=== PATIENT | male | born 1965 | race Caucasian/White ===

== ENCOUNTER 2020-10-22 10:22 | Observation (INO) | payer OTHER, SELFPAY ==
--- NOTE | ~2020-10-22 | CT_ITS ---
EXAMINATION: CT abdomen pelvis w con DATE: 10/22/2020 12:36 INDICATION: Generalized abdominal pain. TECHNIQUE: Computed tomography (CT) of the abdomen and pelvis was performed with 100 mL Omnipaque-350 intravenous contrast. Automated exposure control and iterative reconstruction technique were employe d. The dose-length product was 290.96 mGy-cm. COMPARISON: 07/29/2015 FINDINGS: Lung bases are clear. Heart size is normal. No pericardial or pleural effusion. Small sliding-type hi atal hernia. Liver, gallbladder, pancreas, left kidney and right adrenal gland are normal. Nonspecifi c 2.5 cm left adrenal mass which given the minimal increase in size from 2.0 cm over the course of gr eater than 5 years would be most consistent with an adenoma. There are a couple small low-attenuation right renal cysts the larger measuring 10 mm. Small splenic calcification consistent with old granul omatous disease. Normal appendix. No bowel obstruction. Moderate sigmoid diverticulosis without surro unding from trace stranding to suggest diverticulitis. Bladder is normal. The uterus is not identifie d and has likely been surgically resected. No free intraperitoneal gas or fluid. No pathologically en larged abdominal or pelvic lymphadenopathy. There is calcified atherosclerosis of the aorta and many of the other arteries. Small dystrophic calcifications along the fascial planes of the penis consiste nt with Peyronie's disease. Mild scattered degenerative skeletal changes in the spine and bilateral h ips and sacroiliac joints. IMPRESSION: 1. No acute intra-abdominal/pelvic pain. 2. Sigmoid diverticulosis. Reviewed, dictated and finalized at location A.
[2020-10-22 10:35] VITALS: BP 161/106; PULSE 83; RESP 24; TEMP 36.4; O2SAT 100
[2020-10-22] MEDS: SODIUM CHLORIDE 0.9% IV 1,000 ML 999 ML IV CONT (10:45)
[2020-10-22] MEDS: KETOROLAC 30 MG/ML VIAL (*BKC) IV PUSH (10:45)
[2020-10-22] MEDS: ONDANSETRON INJ 4 MG/2 ML VIAL IV PUSH ×2 (10:45→16:47)
--- NOTE | 2020-10-22 10:45 | ED.ABDPAIN ---
HPI - Abdominal Pain General Chief Complaint: Abdominal Pain Stated Complaint: pain in stomach has not pooped in days Time Seen by Provider: 10/22/20 10:46 Source: patient and RN notes reviewed Mode of arrival: ambulatory Limitations: no limitations History of Present Illness MD elicited complaint: abdominal pain Pertinent past history: constipation and diverticulitis Onset (ago): hour(s) (2) Pain Consistency: colicky Location: LLQ Severity: moderate Quality: cramping Radiation: none Migration to: no migration Exacerbating factors: nothing Relieving factors: nothing Associated symptoms: nausea, vomiting, chills and constipation (no BM in 2 days) Related Data Home Medications Medication Instructions Recorded Confirmed amlodipine 5 mg PO DAILY 10/22/20 10/22/20 ibuprofen 800 mg PO TID 10/22/20 10/22/20 lisinopril 30 mg PO DAILY 10/22/20 10/22/20 pantoprazole 40 mg PO DAILY 10/22/20 10/22/20 sertraline 100 mg PO DAILY 10/22/20 10/22/20 tramadol 50 mg PO Q6H PRN 10/22/20 10/22/20 trazodone 100 mg PO HS PRN 10/22/20 10/22/20 Allergies Allergy/AdvReac Type Severity Reaction Status Date / Time No Known Allergies Allergy Unverified 09/21/19 10:36 Review of Systems Review of Systems: All systems reviewed & are unremarkable except as noted in HPI and below Constitutional: Constitutional: Denies fever(s) Cardiovascular: Cardiovascular: Reports no additional cardiovascular complaints Respiratory: Respiratory: Reports no additional respiratory complaints Gastrointestinal: Gastrointestinal: Reports as per HPI and Denies heartburn Genitourinary: Genitourinary: Reports no additional male genitourinary complaints Musculoskeletal: Musculoskeletal: Reports no additional musculoskeletal complaints [facility], [facility] Past Medical History Medical History (Updated 10/22/20 @ 16:03 by Manoj Tran MD) Diverticulitis GERD (gastroesophageal reflux disease) Hypertension Surgical History Surgical History (Updated 10/22/20 @ 11:19 by Manoj Tran MD) H/O neck surgery Social History Social History (Updated 10/22/20 @ 11:19 by Manoj Tran MD) Smoking packs per day: 0.5 Smoking cigarettes per day: 10.0 Smoking status: Current every day smoker Alcohol intake: former Alcohol use details: quit 3 years ago Substance use: current Substance use type: marijuana Other substance usage details: occasional Exam Const: General: no acute distress and ill appearing acutely ( appears in pain) Nutritional Appearance: thin Orientation/consciousness: patient oriented x3 HENMT: Head: normal to inspection Ears: external ears normal Face and sinus: normal facial exam Mouth: Yes lip normal and Yes moist mucous membranes Eyes: Conjunctivae: conjunctivae normal Pupils: Equal, round and reactive pupils present EOM: EOMs intact bilaterally Neck: Neck: normal visual inspection Resp: Effort & Inspection: normal respiratory effort Auscultation: clear to auscultation bilaterally Cardio: Rate: regular rate Rhythm: regular rhythm GI: GI Palp: Yes Soft to palpation, Yes Tenderness to palpation present (GI) (LLQ moderate to severe), Yes Guarding due to palpation present (GI) and No Rebound tenderness present Back/Spine/Pelvis: Back: no CVA tenderness Thoracic/Lumbar Spine: thoraco-lumbar ROM normal Skin: General skin exam: normal color Rashes: no rashes Neuro: General: patient oriented x3, moves all extremities, no meningeal signs and no focal motor deficits Speech: normal speech Gait exam (Neuro): Normal gait present Extrem: General: normal to inspection and no clubbing, cyanosis or edema Psych: Appearance: grossly normal and well kempt Mental Status: mental status grossly normal Affect: normal affect Attitude: cooperative Thought content: Yes Normal thought content present Course Course Emergency Course: patient continues to have pain cramping in his left abdomen. CT does not show evidence of divertic
[2020-10-22] MEDS: HYDROmorphone HCL INJ (*CRX) 2 MG/ML VIAL 0.5 MG IV PUSH ×3 (11:14→20:31)
[2020-10-22 11:42] LABS: Basophils Absolute Auto 0.04 K/mm3 (0.00-0.10); Basophils Percent Auto 0.3 % (0.0-1.0); Eosinophils Absolute Auto 0.02 K/mm3 (0.02-0.50); Eosinophils Percent Auto 0.2 % (1.0-6.0); Hematocrit 34.7 % (40.0-54.0); Hemoglobin 11.2 g/dL (14.0-18.0); Immature Granulocyte Absolute 0.06 K/mm3 (0.00-0.00); Immature Granulocyte Percent A 0.5 % (0.0-0.0); Lymphocytes Percent Auto 7.1 % (18.0-42.0); Mean Corpuscular HGB Conc 32.3 g/dL (32.0-36.0); Mean Corpuscular Hemoglobin 26.9 pg (27.0-31.0); Mean Corpuscular Volume 83.4 fL (78.0-102.0); Mean Platelet Volume 10.4 fl (8.7-11.0); Monocytes Absolute Auto 0.64 K/mm3 (0.10-0.90); Neutrophils Absolute Auto 11.1 K/mm3 (1.7-7.2); Neutrophils Percent Auto 86.9 % (50.0-70.0); Platelet Count Result 318 K/mm3 (150-420); Red Blood Count 4.16 M/mm3 (4.70-6.10); Red Cell Distribution Width 14.6 % (11.6-14.4); White Blood Count 12.7 K/mm3 (4.8-10.8)
[2020-10-22 11:55] LABS: Albumin Level 3.8 g/dL (3.4-5.0); Alkaline Phosphatase 72 U/L (46-116); Anion Gap 11 mmol/L (8-16); Aspartate Amino Transferase 15 U/L (15-37); Bilirubin,Total 0.3 mg/dL (0.00-1.00); Blood Urea Nitrogen 21 mg/dL (7-18); Calcium 8.8 mg/dL (8.5-10.1); Carbon Dioxide 25 mmol/L (21-32); Chloride 102 mmol/L (98-108); Estimated Glomerular Filt Rate 60; Glucose 129 mg/dL (70-99); Lipase 293 U/L (73-393); Osmolality Calculated 291 mOsm/kg (285-295); Potassium 3.4 mmol/L (3.5-5.1); Sodium 138 mmol/L (136-145); Total Protein 7.5 g/dL (6.4-8.2)
[2020-10-22 12:20] LABS: Alanine Aminotransferase 20 U/L (16-63)
[2020-10-22 12:25] LABS: Lactic Acid Reflex 1.8 mmol/L (0.4-2.0)
[2020-10-22] MEDS: HYDROmorphone HCL INJ (*CRX) 2 MG/ML VIAL 1 MG IV PUSH ×2 (12:38→13:44)
[2020-10-22 12:47] LABS: Add Urine Microscopic? NO; Appearance Urine Clear (Clear); Bilirubin Urine Negative (Negative); Blood Urine Negative (Negative); Color Urine Yellow (Yellow); Glucose Urine UA Negative (Negative); Ketones Urine Negative (Negative); Leukocyte Esterase Ur Negative LEU/UL (Negative); Nitrate Urine Negative (Negative); Protein Urine Negative (Negative); Urobilinogen Urine 0.2 mg/dL (0.2-1.0)
[2020-10-22 12:58] LABS: Amphetamine Screen Urine Negative (Negative); Barbiturate Screen Urine Negative (Negative); Benzodiazepines Screen Urine Negative (Negative); Cannabinoid Screen Urine Positive (Negative); Cocaine Screen Urine Negative (Negative); Methadone Screen Urine Negative (Negative); Opiate Screen Urine Negative (Negative); Phencyclidine Screen Urine Negative (Negative)
[2020-10-22] MEDS: POTASSIUM CHLORIDE 20 MEQ TABLET PO (13:20)
[2020-10-22 13:49] LABS: Amylase 112 U/L (25-115)
[2020-10-22 16:00] VITALS: BP 148/90; PULSE 110; RESP 20; TEMP 37.3; O2SAT 99
[2020-10-22 16:03] VITALS: BP 169/79; PULSE 118; RESP 20; O2SAT 98
[2020-10-22 16:20] VITALS: BMI 23.6
[2020-10-22] MEDS: DEXTROSE 5%/0.45% SOD CHL 1,000 ML 150 ML IV CONT ×2 (16:48→23:47)
--- NOTE | 2020-10-22 17:15 | PC.NURSE ---
Patient instructed not to flush toilet. Nurse needs to see BM
[2020-10-22] MEDS: traZODone HCL 50 MG TABLET PO (20:20)
[2020-10-22 21:08] VITALS: BP 160/95; PULSE 87; RESP 20; TEMP 36.8; O2SAT 97
[2020-10-22 22:00] VITALS: PULSE 87; RESP 20; TEMP 36.8; O2SAT 97
[2020-10-23] VITALS: BP 160/95; PULSE 87; RESP 20; TEMP 36.8; O2SAT 97
[2020-10-23] MEDS: HYDROmorphone HCL INJ (*CRX) 2 MG/ML VIAL 0.5 MG IV PUSH (02:44)
[2020-10-23 06:07] VITALS: BP 183/97; PULSE 84; RESP 18; TEMP 36.2; O2SAT 98
[2020-10-23 07:40] VITALS: BP 167/92; PULSE 85; RESP 18; TEMP 37.3; O2SAT 98
--- NOTE | 2020-10-23 08:19 | PM.SD2 ---
Same Day Admit/Disch: HPI History of Present Illness Chief complaint: DIVERTICULITIS <DUNIA Kwon - Last Filed: 10/23/20 08:58> Narrative: Bean Lizama is a 55 year old male who comes into the hospital with LLQ pain and states he has not had a BM in a few days. Pt states the sensation he gets is that he needs to pass gas when he is standing and when sitting there is tenderness. Pt UDS positive for THC and Pt admits to using same. Pt states that he has been having episodes of N/V. Pt states that he had been taking his BP medications but stopped when he saw his BP at one time was 90s systolic. This AM Pt states his pain is improved and would like to go home. <DUNIA Kwon - Last Filed: 10/23/20 08:58> [facility] Past Medical History Medical History: Medical History Diverticulitis GERD (gastroesophageal reflux disease) Hypertension <DUNIA Kwon - Last Filed: 10/23/20 08:58> Surgical History Surgical History: Surgical History H/O neck surgery <DUNIA Kwon - Last Filed: 10/23/20 08:58> Family History Family History: Family History Mother Colon cancer <DUNIA Kwon - Last Filed: 10/23/20 08:58> Social History Social History: Social History Smoking packs per day: 0.5 Smoking cigarettes per day: 10.0 Smoking status: Current every day smoker Tobacco type: cigarettes and e-cigarettes/vaping Second hand tobacco smoke exposure: Yes Alcohol intake: former Drinks per week: 7 Alcohol use details: quit 3 years ago Substance use: current Substance use type: marijuana Other substance usage details: occasional Gender identity (if verbalized by the patient): Male Spiritual care concerns: No <DUNIA Kwon Last Filed: 10/23/20 08:58> Same Day Admit/Disch: Med Pre-admit Medications Home Medications: Home Medications Medication Instructions Recorded Confirmed Type amlodipine 5 mg PO DAILY 10/22/20 10/22/20 History ibuprofen 800 mg PO TID 10/22/20 10/22/20 History lisinopril 30 mg PO DAILY 10/22/20 10/22/20 History pantoprazole 40 mg PO DAILY 10/22/20 10/22/20 History sertraline 100 mg PO DAILY 10/22/20 10/22/20 History tramadol 50 mg PO Q6H PRN 10/22/20 10/22/20 History trazodone 100 mg PO HS PRN 10/22/20 10/22/20 History levofloxacin 500 mg PO DAILY 7 Days #7 tablet 10/23/20 Rx metronidazole [Flagyl] 500 mg PO Q8H #21 tablet 10/23/20 Rx <DUNIA Kwon - Last Filed: 10/23/20 08:58> Exam Const: General: cooperative, comfortable and no acute distress <DUNIA Kwon - Last Filed: 10/23/20 08:58> Nutritional Appearance: average body habitus <DUNIA Kwon Last Filed: 10/23/20 08:58> HENMT: Head: normal to inspection, normocephalic and atraumatic <DUNIA Kwon - Last Filed: 10/23/20 08:58> Ears: hearing grossly normal bilaterally <DUNIA Kwon Last Filed: 10/23/20 08:58> Eyes: General: appearance normal, both eyes and all related structures <DUNIA Kwon - Last Filed: 10/23/20 08:58> Alignment and Position: alignment normal <DUNIA Kwon Last Filed: 10/23/20 08:58> Eyelids: eyelids normal <DUNIA Kwon - Last Filed: 10/23/20 08:58> Neck: Neck: normal visual inspection and no JVD <DUNIA Kwon - Last Filed: 10/23/20 08:58> Resp: Effort & Inspection: normal respiratory effort <DUNIA Kwon - Last Filed: 10/23/20 08:58> Auscultation: clear to auscultation bilaterally <DUNIA Kwon - Last Filed: 10/23/20 08:58> Cardio: Jugular venous distension: no JVD <DUNIA Kwon - Last Filed: 10/23/20 08:58> Rate: regular rate <DUNIA Kwon
[2020-10-23] MEDS: LACTULOSE 20 GM/30 ML UDC PO (08:30)
--- NOTE | 2020-10-23 09:05 | PC.NURSE ---
RN reviewed discharge instructions with patient. Patient verbalizes understanding and reports he already has a doctor appointment scheduled. RN escorted patient to main entrance, patient ambulated off floor.
--- NOTE | 2020-10-30 13:23 | PC.NURSE ---
Pt states he received and understood his discharge instructions. Pt also states you beny did a great job .
== END 2020-10-23 09:05 | disposition home or self-care (01) ==
LOC: CHSED 15:42 → CHS2ND 10-23 07:49
PROVIDERS: Admitting Provider Emergency Medicine; Emergency Provider Emergency Medicine; PCP Internal Medicine; Visit Provider Emergency Medicine
DX: K57.32 Diverticulitis of large intestine without perforation or abscess without bleeding (principal); R10.824 Left lower quadrant rebound abdominal tenderness; R11.2 Nausea with vomiting, unspecified; K21.9 Gastro-esophageal reflux disease without esophagitis; I10 Essential (primary) hypertension; F17.200 Nicotine dependence, unspecified, uncomplicated; F12.90 Cannabis use, unspecified, uncomplicated
CPT/HCPCS: 36415; 74177; 80053; 80307; 81003; 82150; 83605; 83690; 85025; 96361; 96365; 96366; 96375; 96376; 99285; A9270; G0378; G0379; J1170; J1885; J2405; J2543; J7030; Q9967

== ENCOUNTER 2020-10-25 08:32 | Emergency (ER) | payer OTHER, SELFPAY ==
--- NOTE | ~2020-10-25 | CT_ITS ---
EXAMINATION: CT abdomen pelvis w con DATE: 10/25/2020 10:28 INDICATION: Abdominal pain. Nausea and vomiting. TECHNIQUE: Computed tomography (CT) of the abdomen and pelvis was performed with 100 mL Omnipaque 350 intravenous contrast. Automated exposure control and iterative reconstruction technique were employe d. The dose-length product was 305.73 mGy-cm. COMPARISON: CT abdomen and pelvis 10/22/2020, 07/29/2015 FINDINGS: The visualized portions of the lung bases demonstrate mild atelectasis. No pleural effusion . The heart size is normal. No pericardial effusion. There are coronary artery calcifications. The li jorge, gallbladder, and spleen are normal. The pancreas and right adrenal gland are normal. There is a 2.4 cm mass in left adrenal gland measuring soft tissue attenuation that measured 2.0 cm on 07/29/2015 , likely an adenoma. There are cysts in the kidneys measuring up to 11 mm on the right. There are sca ttered diverticula in the colon. The appendix is normal. There are no dilated loops of bowel. There i s a small sliding hiatal hernia. There are no pathologically enlarged lymph nodes. There is a small u mbilical hernia containing fat. There is no free intraperitoneal fluid. There is mild thoracolumbar s pondylosis. IMPRESSION: 1. Small sliding hiatal hernia. 2. Small umbilical hernia containing fat. Reviewed, dictated and finalized at location B.
[2020-10-25 09:07] VITALS: BP 152/96; PULSE 100; RESP 20; TEMP 36.8; O2SAT 100
[2020-10-25 09:15] LABS: Basophils Absolute Auto 0.03 K/mm3 (0.00-0.10); Basophils Percent Auto 0.3 % (0.0-1.0); Eosinophils Absolute Auto 0.07 K/mm3 (0.02-0.50); Eosinophils Percent Auto 0.7 % (1.0-6.0); Hematocrit 32.1 % (40.0-54.0); Hemoglobin 10.6 g/dL (14.0-18.0); Immature Granulocyte Absolute 0.04 K/mm3 (0.00-0.00); Immature Granulocyte Percent A 0.4 % (0.0-0.0); Lymphocytes Absolute Auto 1.01 K/mm3 (1.10-4.50); Mean Corpuscular Hemoglobin 27.5 pg (27.0-31.0); Mean Corpuscular Volume 83.4 fL (78.0-102.0); Monocytes Absolute Auto 0.57 K/mm3 (0.10-0.90); Monocytes Percent Auto 5.7 % (2.0-11.0); Neutrophils Absolute Auto 8.3 K/mm3 (1.7-7.2); Neutrophils Percent Auto 82.9 % (50.0-70.0); Platelet Count Result 305 K/mm3 (150-420); Red Blood Count 3.85 M/mm3 (4.70-6.10); White Blood Count 10.1 K/mm3 (4.8-10.8)
[2020-10-25] MEDS: DICYCLOMINE HCL INJ 20 MG/2 ML VIAL IM (09:20)
[2020-10-25 09:27] LABS: Alanine Aminotransferase 16 U/L (16-63); Albumin Level 3.8 g/dL (3.4-5.0); Alkaline Phosphatase 67 U/L (46-116); Anion Gap 11 mmol/L (8-16); Aspartate Amino Transferase 12 U/L (15-37); Bilirubin,Total 0.3 mg/dL (0.00-1.00); Blood Urea Nitrogen 21 mg/dL (7-18); Carbon Dioxide 25 mmol/L (21-32); Chloride 103 mmol/L (98-108); Estimated Glomerular Filt Rate 54; Glucose 128 mg/dL (70-99); Lipase 306 U/L (73-393); Osmolality Calculated 293 mOsm/kg (285-295); Potassium 3.5 mmol/L (3.5-5.1); Sodium 139 mmol/L (136-145); Total Protein 7.2 g/dL (6.4-8.2)
[2020-10-25 10:08] VITALS: BP 146/97; PULSE 88; RESP 16; O2SAT 100
[2020-10-25 10:25] LABS: Add Urine Microscopic? YES; Appearance Urine Clear (Clear); Bilirubin Urine Negative (Negative); Blood Urine Negative (Negative); Color Urine Yellow (Yellow); Glucose Urine UA Negative (Negative); Ketones Urine 1+ (Negative); Leukocyte Esterase Ur Negative (Negative); Nitrate Urine Negative (Negative); Protein Urine Negative (Negative); Specific Grav Ur >= 1.030 (1.010-1.020); Urobilinogen Urine 0.2 mg/dL (0.2-1.0); pH Urine 5.5 (5.0-8.0)
[2020-10-25 10:31] LABS: Bacteria Urine Trace /hpf; RBC Urine None seen /hpf (0-2); WBC Urine None seen /hpf (0-3)
[2020-10-25 10:39] LABS: Amphetamine Screen Urine Negative (Negative); Barbiturate Screen Urine Negative (Negative); Benzodiazepines Screen Urine Negative (Negative); Cannabinoid Screen Urine Positive (Negative); Cocaine Screen Urine Negative (Negative); Methadone Screen Urine Negative (Negative); Opiate Screen Urine Positive (Negative); Phencyclidine Screen Urine Negative (Negative)
--- NOTE | 2020-10-25 10:53 | ED.ABDPAIN ---
HPI - Abdominal Pain General Chief Complaint: Abdominal Pain Stated Complaint: ABD PAIN Time Seen by Provider: 10/25/20 09:10 Source: patient Mode of arrival: ambulatory Limitations: no limitations History of Present Illness HPI narrative: This man presents with what he says is diffuse abdominal pain, he rates this as severe, ongoing, intermittent, and ongoing. He denies fever and chills. He could not think of anything that precipitated his discomfort, at least not initially, then he later told me he thought he was constipated. Abdominal discomfort, and cramping has gone off and on for two days. MD elicited complaint: abdominal pain Pertinent past history: constipation Onset (ago): hour(s) Pain Consistency: intermittent Location: diffuse Severity: moderate Quality: cramping Radiation: none Migration to: no migration Exacerbating factors: nothing Relieving factors: nothing Treatments prior to arrival: NSAIDs Related Data Home Medications Medication Instructions Recorded Confirmed amlodipine 5 mg PO DAILY 10/22/20 10/25/20 ibuprofen 800 mg PO TID 10/22/20 10/25/20 lisinopril 30 mg PO DAILY 10/22/20 10/25/20 pantoprazole 40 mg PO DAILY 10/22/20 10/25/20 sertraline 100 mg PO DAILY 10/22/20 10/25/20 tramadol 50 mg PO Q6H PRN 10/22/20 10/25/20 trazodone 100 mg PO HS PRN 10/22/20 10/25/20 Allergies Allergy/AdvReac Type Severity Reaction Status Date / Time No Known Allergies Allergy Unverified 09/21/19 10:36 Review of Systems Constitutional: Constitutional: Reports no additional constitutional complaints Eyes: Eyes: Reports no additional eye complaints ENT: Reports system reviewed and no additional complaints, except as documented Cardiovascular: Cardiovascular: Reports no additional cardiovascular complaints Respiratory: Respiratory: Reports no additional respiratory complaints Gastrointestinal: Gastrointestinal: Reports constipation Genitourinary: Genitourinary: Reports no additional male genitourinary complaints Musculoskeletal: Musculoskeletal: Reports no additional musculoskeletal complaints Integumentary/Breasts: Skin/Breast: Reports system reviewed and no additional complaints, except as docu Neurologic: Reports system reviewed and no additional complaints, except as documented Psychiatric: Psychiatric: Reports no additional psychiatric complaints Endocrine: Endocrine: Reports no additional endocrine complaints Hematologic/Lymphatic: Hematologic/Lymphatic: Reports no additional hematologic/lymphatic complaints Allergic/Immunologic: Allergic/Immunologic: Reports no additional allergic/immunologic complaints [facility] Past Medical History Medical History Diverticulitis GERD (gastroesophageal reflux disease) Hypertension Surgical History Surgical History H/O neck surgery Family History Family History Mother Colon cancer Social History Social History Smoking packs per day: 0.5 Smoking cigarettes per day: 10.0 Smoking status: Current every day smoker Tobacco type: cigarettes and e-cigarettes/vaping Second hand tobacco smoke exposure: Yes Alcohol intake: former Drinks per week: 7 Substance use: current Substance use type: marijuana Other substance usage details: occasional Gender identity (if verbalized by the patient): Male Spiritual care concerns: No Exam Const: General: no acute distress Orientation/consciousness: patient oriented x3 HENMT: Head: normal to inspection Ears: external ears normal and TM's normal bilaterally General nose exam: Normal external nose present Face and sinus: normal facial exam Mouth: Yes Normal oral and palatal mucosa present Throat: posterior oropharynx normal Eyes: Conjunctivae: conjunctivae normal Neck: Neck: normal visual i
[2020-10-25 11:05] VITALS: BP 138/64; PULSE 90; RESP 16; O2SAT 98
== END 2020-10-25 11:20 | disposition home or self-care (01) ==
PROVIDERS: Emergency Provider Emergency Medicine; PCP Internal Medicine
DX: R10.9 Unspecified abdominal pain (principal)
CPT/HCPCS: 36415; 74177; 80053; 80307; 81001; 83690; 85025; 96372; 99283; 99284; J0500; Q9967

== ENCOUNTER 2020-11-14 10:28 | Observation (INO) | payer OTHER, SELFPAY ==
--- NOTE | ~2020-11-14 | XR_ITS ---
EXAMINATION: XR abdomen obstructive series DATE: 11/14/2020 12:43 INDICATION: Umbilical pain. Nausea and vomiting. TECHNIQUE: Upright and supine views of the abdomen were obtained. COMPARISON: CT abdomen and pelvis 10/25/2020 FINDINGS: There are no dilated loops of bowel. There is a small volume of stool in the colon. No free intraperitoneal gas. There are phleboliths in the pelvis. IMPRESSION: 1. Normal bowel gas pattern. Reviewed, dictated and finalized at location B.
--- NOTE | 2020-11-14 10:43 | ED.ABDPAIN ---
HPI - Abdominal Pain General Chief Complaint: Nausea/Vomiting/Diarrhea Stated Complaint: Abdomen Pain Time Seen by Provider: 11/14/20 10:43 Source: patient Mode of arrival: ambulatory Limitations: no limitations History of Present Illness HPI narrative: 55-year-old man comes to the emergency department this morning complaining of abdominal and vomiting that started at 8:00 a.m. this morning. Patient states that he has had no diarrhea , bloody stools, black stools, fever, or blood in his vomitus. patient states he has had this before and while it was attributed to his marijuana use during prior visits he is doubtful that is the cause and has scheduled to have a colonoscopy this month. He was seen on October 22 and for similar symptoms. He denies prior abdominal surgeries. MD elicited complaint: abdominal pain Onset (ago): hour(s) (3) Pain Consistency: constant Location: epigastric Severity: severe Quality: sharp Radiation: none Migration to: no migration Exacerbating factors: other ( Lying prone) Relieving factors: nothing Associated symptoms: nausea, vomiting and chills Related Data Home Medications Medication Instructions Recorded Confirmed amlodipine 5 mg PO DAILY 10/22/20 11/14/20 ibuprofen 800 mg PO TID 10/22/20 11/14/20 lisinopril 30 mg PO DAILY 10/22/20 11/14/20 pantoprazole 40 mg PO DAILY 10/22/20 11/14/20 sertraline 100 mg PO DAILY 10/22/20 11/14/20 tramadol 50 mg PO Q6H PRN 10/22/20 11/14/20 trazodone 100 mg PO HS PRN 10/22/20 11/14/20 Allergies Allergy/AdvReac Type Severity Reaction Status Date / Time No Known Allergies Allergy Unverified 09/21/19 10:36 Review of Systems Review of Systems: All systems reviewed & are unremarkable except as noted in HPI and below Constitutional: Constitutional: Reports chills and Denies fever(s) Eyes: Eyes: Denies change in vision and Denies photophobia ENT: Denies dysphagia, Denies nasal congestion and Denies sore throat Cardiovascular: Cardiovascular: Denies chest pain and Denies radiating jaw, neck or arm pain Respiratory: Respiratory: Denies cough and Denies dyspnea Gastrointestinal: Gastrointestinal: Reports as per HPI, Denies constipation and Denies diarrhea Genitourinary: Genitourinary: Denies hematuria, Denies dysuria and Denies urinary frequency Musculoskeletal: Musculoskeletal: Denies back pain, Denies arthralgias and Denies joint swelling Integumentary/Breasts: Skin/Breast: Denies pruritus, Denies erythema and Denies rash Neurologic: Denies vertigo, Denies dizziness and Denies syncope Hematologic/Lymphatic: Hematologic/Lymphatic: Denies easy bleeding and Denies easy bruising Allergic/Immunologic: Allergic/Immunologic: Denies lip swelling and Denies throat swelling PMFSH Past Medical History Medical History Diverticulitis GERD (gastroesophageal reflux disease) Hypertension Surgical History Surgical History H/O neck surgery Family History Family History Mother Colon cancer Social History Social History Smoking packs per day: 0.5 Smoking cigarettes per day: 10.0 Smoking status: Current every day smoker Tobacco type: cigarettes and e-cigarettes/vaping Second hand tobacco smoke exposure: Yes Alcohol intake: former Drinks per week: 7 Substance use: current Substance use type: marijuana Other substance usage details: occasional Gender identity (if verbalized by the patient): Male Spiritual care concerns: No Exam Const: General: alert Orientation/consciousness: patient oriented x3 Limitations: no limitations Other: moderate to severe acute distress. HENMT: Mouth: Yes moist mucous membranes Throat: posterior oropharynx normal Eyes: Conjunctivae: conjunctivae normal Pupils: Equal, rou
[2020-11-14 11:05] VITALS: BP 194/96; PULSE 83; RESP 16; TEMP 36.7; O2SAT 100
[2020-11-14] MEDS: PROMETHAZINE HCL 25 MG/ML AMPUL IM (11:17)
--- NOTE | 2020-11-14 11:29 | PC.NURSE ---
THREE FAILED ATTEMPTS AT IV PLACEMENT, PT CONTINUES TO ASK FOR PAIN MEDICATIONS - PT HAS NO EPISODES OF DRY HEAVES OR RESTLESSNESS WHILE ERP TRYING TO PLACE US GUIDED IV
[2020-11-14 11:53] LABS: Basophils Absolute Auto 0.02 K/mm3 (0.00-0.10); Basophils Percent Auto 0.2 % (0.0-1.0); Eosinophils Absolute Auto 0.02 K/mm3 (0.02-0.50); Eosinophils Percent Auto 0.2 % (1.0-6.0); Hematocrit 29.9 % (40.0-54.0); Hemoglobin 9.9 g/dL (14.0-18.0); Immature Granulocyte Absolute 0.03 K/mm3 (0.00-0.00); Immature Granulocyte Percent A 0.3 % (0.0-0.0); Lymphocytes Absolute Auto 0.89 K/mm3 (1.10-4.50); Lymphocytes Percent Auto 9.6 % (18.0-42.0); Mean Corpuscular HGB Conc 33.1 g/dL (32.0-36.0); Mean Corpuscular Hemoglobin 26.6 pg (27.0-31.0); Mean Corpuscular Volume 80.4 fL (78.0-102.0); Mean Platelet Volume 9.7 fl (8.7-11.0); Monocytes Absolute Auto 0.32 K/mm3 (0.10-0.90); Monocytes Percent Auto 3.5 % (2.0-11.0); Neutrophils Percent Auto 86.2 % (50.0-70.0); Platelet Count Result 310 K/mm3 (150-420); Red Blood Count 3.72 M/mm3 (4.70-6.10); Red Cell Distribution Width 15.9 % (11.6-14.4); White Blood Count 9.2 K/mm3 (4.8-10.8)
[2020-11-14 11:55] LABS: Add Urine Microscopic? YES; Appearance Urine Clear (Clear); Bilirubin Urine Negative (Negative); Blood Urine Negative (Negative); Color Urine Yellow (Yellow); Glucose Urine UA Negative (Negative); Ketones Urine 1+ (Negative); Leukocyte Esterase Ur Negative LEU/UL (Negative); Nitrate Urine Negative (Negative); Protein Urine Negative (Negative); Urobilinogen Urine 0.2 mg/dL (0.2-1.0); pH Urine 8.5 (5.0-8.0)
[2020-11-14 12:01] LABS: Bacteria Urine None seen /hpf; RBC Urine None seen /hpf (0-2); Squamous Epithelial Cell Urine Rare /hpf (Few); WBC Urine None seen /hpf (0-3)
[2020-11-14 12:02] LABS: Amphetamine Screen Urine Negative (Negative); Barbiturate Screen Urine Negative (Negative); Benzodiazepines Screen Urine Negative (Negative); Cannabinoid Screen Urine Positive (Negative); Cocaine Screen Urine Negative (Negative); Methadone Screen Urine Negative (Negative); Opiate Screen Urine Negative (Negative); Phencyclidine Screen Urine Negative (Negative)
[2020-11-14] MEDS: SODIUM CHLORIDE 0.9% IV 1,000 ML 999 ML IV CONT (12:02)
[2020-11-14] MEDS: ONDANSETRON INJ 4 MG/2 ML VIAL IV PUSH ×2 (12:02→22:09)
[2020-11-14] MEDS: HYDROmorphone HCL INJ (*CRX) 2 MG/ML VIAL 0.5 MG IV PUSH ×4 (12:02→23:12)
[2020-11-14 12:08] LABS: Alanine Aminotransferase 12 U/L (16-63); Albumin Level 3.6 g/dL (3.4-5.0); Alkaline Phosphatase 66 U/L (46-116); Anion Gap 12 mmol/L (8-16); Aspartate Amino Transferase 15 U/L (15-37); Bilirubin,Total 0.3 mg/dL (0.00-1.00); Blood Urea Nitrogen 18 mg/dL (7-18); Calcium 8.8 mg/dL (8.5-10.1); Carbon Dioxide 23 mmol/L (21-32); Chloride 101 mmol/L (98-108); Estimated Glomerular Filt Rate > 60; Glucose 126 mg/dL (70-99); Lipase 192 U/L (73-393); Osmolality Calculated 285 mOsm/kg (285-295); Potassium 3.6 mmol/L (3.5-5.1); Sodium 136 mmol/L (136-145); Total Protein 6.9 g/dL (6.4-8.2)
[2020-11-14] MEDS: KETOROLAC (*BKC) 60 MG/2 ML VIAL IM (12:16)
[2020-11-14 13:29] VITALS: BP 185/95; PULSE 80; RESP 16; O2SAT 98
--- NOTE | 2020-11-14 13:55 | PC.NURSE ---
Patient admitted to room 226 from ED as observation for c/o N/V, abdominal pain.
--- NOTE | 2020-11-14 13:58 | PM.IMHP ---
H&P: HPI History of Present Illness Date/Time: 11/14/20 13:58 Bean Wu is a 55 year old male who comes to the hospital for N/V and abdominal pain that started this AM. Pt states he has vomited about 7 times and it has gotten to the point he is dry heaving. Abdominal pain is epigastric without radiation. Pt states he woke up and started having abdominal pain. Pt states he use to be a daily drinker of about 1/5 size of EtOH daily. He denies ever having pancreatitis. Pt does admit to smoking marijuana daily. I have taken care of this Pt in the recent past for the same issues. Pt being admitted under Observation for Cyclic Vomiting Syndrome likely d/t daily marijuana consumption. Chief Complaint: N/V Abd Pain Review of Systems Review of Systems: All systems reviewed & are unremarkable except as noted in HPI and below PMFSH Past Medical History Medical History (Updated 11/14/20 @ 14:24 by DUNIA Kwon) Cyclic vomiting syndrome Diverticulitis GERD (gastroesophageal reflux disease) Hypertension Surgical History Surgical History H/O neck surgery Family History Family History Mother Colon cancer Social History Social History Smoking packs per day: 0.5 Smoking cigarettes per day: 10.0 Smoking status: Current every day smoker Tobacco type: cigarettes and e-cigarettes/vaping Second hand tobacco smoke exposure: Yes Alcohol intake: former Drinks per week: 7 Substance use: current Substance use type: marijuana Other substance usage details: occasional Gender identity (if verbalized by the patient): Male Spiritual care concerns: No Meds Home Medications and Allergies Home Medications Medication Instructions Recorded Confirmed Type amlodipine 5 mg PO DAILY 10/22/20 11/14/20 History ibuprofen 800 mg PO TID 10/22/20 11/14/20 History lisinopril 30 mg PO DAILY 10/22/20 11/14/20 History pantoprazole 40 mg PO DAILY 10/22/20 11/14/20 History sertraline 100 mg PO DAILY 10/22/20 11/14/20 History tramadol 50 mg PO Q6H PRN 10/22/20 11/14/20 History trazodone 100 mg PO HS PRN 10/22/20 11/14/20 History levofloxacin 500 mg PO DAILY 7 Days #7 tablet 10/23/20 11/14/20 Rx Allergies Allergy/AdvReac Type Severity Reaction Status Date / Time No Known Allergies Allergy Unverified 09/21/19 10:36 Vital Signs Vital Signs - 24 hr 11/14/20 11:05 11/14/20 13:29 Temperature 98.1 F Pulse Rate 83 80 Respiratory Rate 16 16 Blood Pressure 194/96 H 185/95 H Pulse Oximetry 100 98 Exam Const: General: cooperative, no acute distress, alert, awake, Physically active and uncomfortable Nutritional Appearance: average body habitus HENMT: Head: normal to inspection, normocephalic and atraumatic Ears: hearing grossly normal bilaterally General nose exam: Normal external nose present Face and sinus: normal facial exam Eyes: General: appearance normal, both eyes and all related structures Neck: Neck: normal visual inspection, no lymphadenopathy and no JVD Resp: Effort & Inspection: normal respiratory effort Auscultation: clear to auscultation bilaterally Cardio: Rate: regular rate Heart sounds: S1 normal heart sound present and S2 normal heart sound present GI: Inspection: normal to inspection, non-distended, no incisions and no visible pulsation GI Palp: Yes Soft to palpation, Yes Tenderness to palpation present (GI) (epigastrict, guarding with arms), Yes No hepatosplenomegaly present, No Pulsatile mass present and No Aortic enlargement present Auscultation: Hypoactive bowel sounds present Skin: General skin exam: normal color and no rashes or lesions noted Neuro: General: oriented to person, oriented to place and oriented to time Cranial nerves: Yes CN's II-XII intact bilaterally (grossly intact) Cognition (Neuro):
[2020-11-14] MEDS: LORazepam INJ (*CRX) 2 MG/ML VIAL 1 MG IV PUSH (15:18)
[2020-11-14] MEDS: PROCHLORPERAZINE EDISYLATE 10 MG/2 ML VIAL IV PUSH (15:20)
[2020-11-14] MEDS: DEXTROSE 5%/LACTATED RINGERS 1,000 ML 150 ML IV CONT (15:26)
--- NOTE | 2020-11-14 15:37 | PC.NURSE ---
pt given pain medication, asks how often it can be given and why it isn't working yet, pt informed it takes a few minutes to get into the system, given urinal
[2020-11-14 15:40] VITALS: BP 196/99; PULSE 74; RESP 18; TEMP 38.1; O2SAT 95
[2020-11-14] MEDS: HYDROcodone/acetaminophen (*CRX) 7.5-325 MG TABLET 1 TAB PO (18:05)
--- NOTE | 2020-11-14 18:07 | PC.NURSE ---
pt given norco for pain, requests more dilaudid when he can have it, small sip of water for pill, tolerated well, iv running
[2020-11-14 19:23] VITALS: TEMP 38.8
[2020-11-14] MEDS: ACETAMINOPHEN 500 MG TABLET 1000 MG PO (19:23)
[2020-11-14 19:33] VITALS: BP 175/98; PULSE 101; RESP 18; TEMP 38.8; O2SAT 100
--- NOTE | 2020-11-14 19:45 | PC.NURSE ---
pt requests more pain medicine, reports some nausea but no dry heaves or vomiting, requests a friend (lonnie) be called and made aware of his admission to the hospital, no answer, vm left
--- NOTE | 2020-11-14 20:46 | PC.NURSE ---
pt appears to be sleeping, chest movement evident, call light and urinal in reach, no s/sx of n/v
[2020-11-14] MEDS: PANTOPRAZOLE SODIUM IV 40 MG VIAL IV PUSH (21:15)
--- NOTE | 2020-11-14 21:43 | PC.NURSE ---
pt appears to be sleeping, no s/sx of n/v, iv running, call light in reach, chest rise noted
--- NOTE | 2020-11-14 22:13 | PC.NURSE ---
pt repositioned due to iv, urinal emptied, pt complains of hunger pains , asks for water, reminded of npo diet, given zofran
--- NOTE | 2020-11-14 23:02 | PC.NURSE ---
Patient c/o heartburn. PRN zofran given at 2200 nausea. Doctor notified
[2020-11-14] MEDS: MAG HYDROX/ALUMINUM HYD/SIMETH 30 ML, PHENobarb/HYOSCY/ATROPINE/SCOP 32.4 MG, LIDOCAINE... PO (23:29)
[2020-11-14 23:50] VITALS: BP 196/115; PULSE 102; RESP 16; TEMP 37.7; O2SAT 98
--- NOTE | 2020-11-14 23:53 | PC.NURSE ---
Pt had GI kasia ktail per order & IV PUSH PAIN MED given per RN. Lab in room @ present.
--- NOTE | 2020-11-15 00:10 | ECG_ITS ---
SINUS TACHYCARDIA INCOMPLETE RIGHT BUNDLE BRANCH BLOCK MINIMAL Q WAVES- INFERIOR LEADS ABNORMAL ECG Electronically Signed On 11-15-2020 11:08:15 CDT by Fady BUSTAMANTE
--- NOTE | 2020-11-15 00:15 | PC.NURSE ---
Lab completed blood draws Flu and Covid testing.
--- NOTE | 2020-11-15 00:20 | PC.NURSE ---
Doctor given EKG report
[2020-11-15 00:22] VITALS: BP 128/93; PULSE 110; RESP 16; TEMP 36.7; O2SAT 98
--- NOTE | 2020-11-15 00:23 | PC.NURSE ---
EKG per order.
[2020-11-15 00:27] LABS: CRP < 0.5 mg/dL (0.0-0.9); Troponin I 8.5 ng/L (0.00-60.4)
[2020-11-15 01:06] LABS: Influenza A QL RT-PCR Negative (Negative); Influenza B QL RT-PCR Negative (Negative); SARS-CoV-2 RNA PCR Negative (Negative)
[2020-11-15] MEDS: DEXTROSE 5%/LACTATED RINGERS 1,000 ML 150 ML IV CONT (01:25)
[2020-11-15] MEDS: ACETAMINOPHEN 500 MG TABLET 1000 MG PO (01:53)
[2020-11-15] MEDS: HYDROmorphone HCL INJ (*CRX) 2 MG/ML VIAL 0.5 MG IV PUSH (03:27)
--- NOTE | 2020-11-15 03:38 | PC.NURSE ---
IV site infiltrated. Ice pack applied
[2020-11-15 03:48] VITALS: BP 162/100; PULSE 92; RESP 16; TEMP 37.4; O2SAT 96
[2020-11-15] MEDS: ONDANSETRON INJ 4 MG/2 ML VIAL IV PUSH (04:03)
--- NOTE | 2020-11-15 05:07 | PC.NURSE ---
IV rate decreased to 75ml hr.
[2020-11-15 06:10] LABS: Basophils Absolute Auto 0.03 K/mm3 (0.00-0.10); Basophils Percent Auto 0.3 % (0.0-1.0); Eosinophils Absolute Auto 0.06 K/mm3 (0.02-0.50); Eosinophils Percent Auto 0.6 % (1.0-6.0); Hematocrit 30.3 % (40.0-54.0); Hemoglobin 10.2 g/dL (14.0-18.0); Immature Granulocyte Absolute 0.04 K/mm3 (0.00-0.00); Immature Granulocyte Percent A 0.4 % (0.0-0.0); Lymphocytes Absolute Auto 2.31 K/mm3 (1.10-4.50); Lymphocytes Percent Auto 22.3 % (18.0-42.0); Mean Corpuscular HGB Conc 33.7 g/dL (32.0-36.0); Mean Corpuscular Hemoglobin 27.1 pg (27.0-31.0); Mean Corpuscular Volume 80.4 fL (78.0-102.0); Mean Platelet Volume 10.5 fl (8.7-11.0); Monocytes Absolute Auto 1.14 K/mm3 (0.10-0.90); Neutrophils Absolute Auto 6.8 K/mm3 (1.7-7.2); Neutrophils Percent Auto 65.4 % (50.0-70.0); Platelet Count Result 334 K/mm3 (150-420); Red Blood Count 3.77 M/mm3 (4.70-6.10); Red Cell Distribution Width 15.9 % (11.6-14.4); White Blood Count 10.3 K/mm3 (4.8-10.8)
[2020-11-15 06:19] LABS: Lactic Acid Reflex 0.5 mmol/L (0.4-2.0)
[2020-11-15 06:24] LABS: Alanine Aminotransferase 20 U/L (16-63); Albumin Level 3.5 g/dL (3.4-5.0); Alkaline Phosphatase 63 U/L (46-116); Anion Gap 9 mmol/L (8-16); Aspartate Amino Transferase 12 U/L (15-37); Bilirubin,Total 0.4 mg/dL (0.00-1.00); Blood Urea Nitrogen 16 mg/dL (7-18); Calcium 8.7 mg/dL (8.5-10.1); Carbon Dioxide 28 mmol/L (21-32); Chloride 98 mmol/L (98-108); Estimated Glomerular Filt Rate 59; Glucose 127 mg/dL (70-99); Osmolality Calculated 283 mOsm/kg (285-295); Potassium 3.2 mmol/L (3.5-5.1); Sodium 135 mmol/L (136-145); Total Protein 6.7 g/dL (6.4-8.2)
[2020-11-15 06:27] LABS: Lipase 2098 U/L (73-393)
[2020-11-15] MEDS: DEXTROSE 5%/LACTATED RINGERS 1,000 ML 75 ML IV CONT (06:34)
[2020-11-15 08:00] VITALS: BP 170/111; PULSE 94; RESP 18; TEMP 37.4; O2SAT 100
[2020-11-15] MEDS: PANTOPRAZOLE SODIUM IV 40 MG VIAL IV PUSH (08:38)
[2020-11-15] MEDS: lisinopriL 10 MG TABLET 30 MG PO (08:38)
[2020-11-15] MEDS: amLODIPine BESYLATE 5 MG TABLET PO (08:38)
[2020-11-15] MEDS: POTASSIUM CHLORIDE 20 MEQ TABLET 40 MEQ PO (08:38)
--- NOTE | 2020-11-15 09:38 | PC.NURSE ---
Patient cont. NPO with sips of water when oral meds given. LENS CLEANER Viet offered [place] sandwich and consumed half. Patient has been obtaining and consuming water per self out of tap with unknown amounts consumed. No c/o abdominal pain, N/V and all intake has been tolerated well.
--- NOTE | 2020-11-15 11:40 | PC.NURSE ---
Patient discharged AMA leaving with all personal items and escorted to main entrance by nurse. Staff informed patient of risk factors of leaving AMA and was instructed by nurse to follow up with primary. IV has been removed and bleeding controlled prior to leaving.
--- NOTE | 2020-11-15 11:44 | PM.DS ---
DS: Admitting Diagnosis Admitting Diagnosis Admitting Diagnosis: N/V Abdominal Pain DS: Discharge Diagnosis Discharge Diagnosis (1) Marijuana user: Code(s): F12.90 - Cannabis use, unspecified, uncomplicated Status: Acute Assessment and Plan: 11/14/2020 Pt was given information regarding marijuana and cyclic vomiting, Pt informed again that he needs to slow down his use of Marijuana. 11/15/2020 Discussed again with Pt and Dr. Rocha. (2) Abdominal pain: Qualifiers: Abdominal location: generalized Qualified Code(s): R10.84 - Generalized abdominal pain Code(s): R10.9 - Unspecified abdominal pain Status: Acute Assessment and Plan: 11/14/2020 Pt given Dilaudid for pain level 7-10 and Zofran for nausea, will order [place] 7.5/325 as a basal pain management does for Q6H PRN for pain 5-7 and save the Dilaudid for breakthrough pain with a level 7-10. I have also ordered a 1 time Compazine dose. 11/15/2020 Pt has not required any pain medication since early this AM. He has eaten half of a turkey sandwich without any complications, he did have a fever last night and his Lipase was elevated to 2098, Pt stated that he did not want to stay in the hospital and that he wanted to go home, he stated he has an appointment with his PCP for a referral to have a GI procedure performed regarding his abdominal issues though the referral information was apparently not approved yet, I encouraged the Pt to stay in the Hospital siting his fever last night, elevated Lipase this morning, the possibility of needing more blood work such as blood cultures, perhaps antibiotics, an US of the abdomen vs another abd/pel CT. Pt wanted to sign out AMA which he did with paperwork prepared by the charge loader Milagros. (3) Cyclic vomiting syndrome: Code(s): R11.15 - Cyclical vomiting syndrome unrelated to migraine Status: Acute Assessment and Plan: 11/14/2020 Likely related to daily marijuana use. Pt states he has not been able to keep water down and is now dry heaving but would like to try some water. Will offer ice chips and sips with medications. 11/15/2020 Resolved. (4) Hypertension: Code(s): I10 - Essential (primary) hypertension Status: Acute Assessment and Plan: 11/14/2020 Pt is suppose to be on Amlodipine, Lisinopril for HTN. Pt states he has been taking his medications but has been throwing it up. 11/15/2020 Pt's BP was elevated, intended on starting him on Metoprolol however Pt wanted to sign out AMA. DS: Summary Hospital Course Hospital Course: Pt signed out AMA. Time Spent with Patient Time attestation: Total time spent providing and/or coordinating discharge services: < 30 minutes Exam Const: General: cooperative, comfortable and no acute distress Nutritional Appearance: average body habitus HENMT: Head: normal to inspection, normocephalic and atraumatic Ears: hearing grossly normal bilaterally Neck: Neck: normal visual inspection and no JVD Resp: Effort & Inspection: normal respiratory effort Auscultation: clear to auscultation bilaterally Cardio: Jugular venous distension: no JVD Rate: regular rate Heart sounds: S1 normal heart sound present and S2 normal heart sound present GI: Inspection: normal to inspection GI Palp: No abdominal tenderness, Yes Soft to palpation and No Tenderness to palpation present (GI) Auscultation: normal bowel sounds Skin: General skin exam: normal color Neuro: General: oriented to person, oriented to place and oriented to time Cranial nerves: Yes CN's II-XII intact bilaterally (grossly intact) Extrem: General: no pedal edema Psych: Appearance: grossly normal Mental Status: mental status grossly normal Speech and movement: Normal speech and movement present DS: Data Data Completed and Pending Labs on day of discharge: Labs from last 24 hours 11/15/20 11/15/20 11/15/20 04:57 04:57 04:57 WBC 10.3 RBC 3.77 L Hgb 10.2 L Hct 3
--- NOTE | 2020-11-20 09:58 | PC.NURSE ---
Unable to contact for discharge call back.
== END 2020-11-15 11:40 | disposition left against medical advice (07) ==
LOC: CHSED 13:17 → CHS2ND 13:44
PROVIDERS: Admitting Provider Emergency Medicine; Emergency Provider Emergency Medicine; Visit Provider Emergency Medicine
DX: R11.15 Cyclical vomiting syndrome unrelated to migraine (principal); K21.9 Gastro-esophageal reflux disease without esophagitis; I10 Essential (primary) hypertension; K57.30 Diverticulosis of large intestine without perforation or abscess without bleeding; F17.210 Nicotine dependence, cigarettes, uncomplicated; F12.90 Cannabis use, unspecified, uncomplicated; Z20.822 Contact with and (suspected) exposure to COVID-19
CPT/HCPCS: 36415; 74019; 80053; 80307; 81001; 83605; 83690; 84484; 85025; 86140; 87040; 87502; 93005; 96361; 96372; 96374; 96375; 96376; 99285; A9270; C9113; C9803; G0378; G0379; J0780; J1170; J1885; J2060; J2405; J2550; J7030; J7121; U0003; U0005

== ENCOUNTER 2021-11-19 17:10 | Emergency (ER) | payer OTHER, SELFPAY ==
[2021-11-19 17:10] VITALS: BP 190/77; PULSE 100; RESP 22; TEMP 37.2; O2SAT 98
--- NOTE | 2021-11-19 17:16 | ED.GENADULT ---
HPI - General Adult General Chief complaint: Alcohol Stated complaint: AMB Time Seen by Provider: 11/19/21 17:15 History of Present Illness HPI narrative: 56-year-old male patient arrives by EMS with complaints of abdominal pain since he has been drinking all day long. He states that he drank a 5th of hard liquor today to chuckie the pain in the neck. The patient who apparently had a cervical fusion done in July of 2021 and he has run out of [place] and tramadol and he states that alcohol was use to help with the pain. Now he has abdominal pain with some nausea but no emesis. He states that he does not drink rate regularly but whenever he does he drinks heavy. He still smokes and is down to 1 cigarette a day. He does use marijuana occasionally. Patient also has a history of hypertension and takes antihypertensive medications. Denies any fever. Denies any chills. Denies any vomiting or diarrhea. Denies any urinary symptoms. Denies any chest pain or shortness of breath. States that he is scheduled to have an upper endoscopy done for recurrent abdominal/epigastric pain Related Data Home Medications Medication Instructions Recorded Confirmed amlodipine 5 mg PO DAILY 10/22/20 11/19/21 lisinopril 30 mg PO DAILY 10/22/20 11/19/21 pantoprazole 40 mg PO DAILY 10/22/20 11/19/21 sertraline 100 mg PO DAILY 10/22/20 11/19/21 trazodone 100 mg PO HS PRN 10/22/20 11/19/21 Allergies Allergy/AdvReac Type Severity Reaction Status Date / Time No Known Allergies Allergy Unverified 09/21/19 10:36 Review of Systems Review of Systems: All systems reviewed & are unremarkable except as noted in HPI and below PMFSH Past Medical History Medical History Cyclic vomiting syndrome Diverticulitis GERD (gastroesophageal reflux disease) Hypertension Surgical History Surgical History H/O neck surgery Family History Family History Mother Colon cancer Social History Social History Smoking packs per day: 0.5 Smoking cigarettes per day: 10.0 Smoking status: Current every day smoker Tobacco type: cigarettes and e-cigarettes/vaping Second hand tobacco smoke exposure: Yes Alcohol intake: former Drinks per week: 7 Alcohol use details: quit 3 years ago Substance use: current Substance use type: marijuana Other substance usage details: occasional Gender identity (if verbalized by the patient): Male Spiritual care concerns: No Exam Narrative: Alert and well oriented male who is extremely anxious and verbally abusive to the staff and noncooperative vital signs are stable, Initial blood pressure is 190/77 and patient seems to be very agitated. HEENT: normocephalic. Moist oral mucous membranes. Midsized pupils equal and react to light. EOMs intact. Neck is supple. A well-healed scar is noted in the posterior neck with no tenderness in the local area. No swelling or redness is noted in the area of surgical scar. Chest wall is nontender. Breath sounds are audible bilaterally. Heart tones are regular. No murmurs appreciated. Abdomen is scaphoid. Patient does have tenderness in the epigastric area with some guarding. Bowel sounds are active. Skin is warm and dry and color is normal. Extremities are atraumatic. Neurologic exam is grossly normal. Patient is anxious. Course Course Emergency Course: 56-year-old male patient was brought to the ER by EMS after he has been drinking all day long with abdominal pain. The patient also states that he has had pain in the neck and is out of his narcotic medications since his doctor did not give him any refills and thus he decided to kill the pain with alcohol. He does have complaints of nausea but no vomiting but he tries to keep retching in the ER. Tito
[2021-11-19] MEDS: ONDANSETRON HCL ODT 4 MG TABLET PO ×2 (17:24→20:39)
[2021-11-19] MEDS: KETOROLAC (*BKC) 60 MG/2 ML VIAL IM (17:24)
[2021-11-19 17:54] LABS: Basophils Absolute Auto 0.05 K/mm3 (0.00-0.10); Basophils Percent Auto 0.5 % (0.0-1.0); Eosinophils Absolute Auto 0.01 K/mm3 (0.02-0.50); Eosinophils Percent Auto 0.1 % (1.0-6.0); Hematocrit 32.2 % (40.0-54.0); Hemoglobin 10.1 g/dL (14.0-18.0); Immature Granulocyte Absolute 0.05 K/mm3 (0.00-0.00); Immature Granulocyte Percent A 0.5 % (0.0-0.0); Lymphocytes Absolute Auto 1.26 K/mm3 (1.10-4.50); Lymphocytes Percent Auto 12.8 % (18.0-42.0); Mean Corpuscular HGB Conc 31.4 g/dL (32.0-36.0); Mean Corpuscular Hemoglobin 22.5 pg (27.0-31.0); Mean Corpuscular Volume 71.7 fL (78.0-102.0); Mean Platelet Volume 10.5 fl (8.7-11.0); Monocytes Absolute Auto 0.35 K/mm3 (0.10-0.90); Monocytes Percent Auto 3.6 % (2.0-11.0); Neutrophils Absolute Auto 8.1 K/mm3 (1.7-7.2); Neutrophils Percent Auto 82.5 % (50.0-70.0); Platelet Count Result 432 K/mm3 (150-420); Red Blood Count 4.49 M/mm3 (4.70-6.10); Red Cell Distribution Width 17.7 % (11.6-14.4); White Blood Count 9.9 K/mm3 (4.8-10.8)
[2021-11-19] MEDS: PANTOPRAZOLE SODIUM IV 40 MG VIAL IV PUSH (18:06)
[2021-11-19 18:10] LABS: Alanine Aminotransferase 17 U/L (16-63); Albumin Level 4.2 g/dL (3.4-5.0); Alkaline Phosphatase 102 U/L (46-116); Amylase 108 U/L (25-115); Anion Gap 17 mmol/L (8-16); Aspartate Amino Transferase 24 U/L (15-37); Bilirubin,Total 0.3 mg/dL (0.00-1.00); Blood Urea Nitrogen 18 mg/dL (7-18); Calcium 9.1 mg/dL (8.5-10.1); Carbon Dioxide 23 mmol/L (21-32); Chloride 102 mmol/L (98-108); Estimated CRCL calculation 57 ml/min; Estimated Glomerular Filt Rate > 60; Ethanol 228 mg/dL (0-6); Glucose 126 mg/dL (70-99); Lipase 211 U/L (73-393); Osmolality Calculated 297 mOsm/kg (285-295); Potassium 3.8 mmol/L (3.5-5.1); Sodium 142 mmol/L (136-145); Total Protein 7.8 g/dL (6.4-8.2)
[2021-11-19 18:11] VITALS: BP 189/88; PULSE 100; RESP 22; O2SAT 98
[2021-11-19] MEDS: LORazepam INJ (*CRX) 2 MG/ML VIAL 0.5 MG IM (18:25)
[2021-11-19] MEDS: MAG HYDROX/ALUMINUM HYD/SIMETH 30 ML, PHENobarb/HYOSCY/ATROPINE/SCOP 32.4 MG, LIDOCAINE... PO (18:45)
--- NOTE | 2021-11-19 19:21 | PC.NURSE ---
pt is lying on abd on stretcher at this time, pt has items strewn about in exam room, urinal at bedside, he is aware of the need for a urine specimen at this time. nad noted. pt is awaiting erp decision at this time. will continue to monitor.
--- NOTE | 2021-11-19 19:41 | PC.NURSE ---
pt up out of room, redirected to room. room is picked up by this rn. pt continues to report he is having abd pain and wants pain medication, states all the other medications are not working. ERP notified. pt reports if he does not get pain medicine he will go home and drink etoh. will continue to monitor.
[2021-11-19] MEDS: FAMOTIDINE 20 MG TABLET 40 MG PO (20:11)
--- NOTE | 2021-11-19 20:40 | PC.NURSE ---
PT REPORTS HE TOOK AND AMBULANCE FROM [facility], REPORTS HIS FRIEND FROM [facility] IS PICKING HIM UP. SHE ARRIVED IN ED TO TRANSPORT PT.
[2021-11-19 20:45] VITALS: BP 168/72; PULSE 88; RESP 16; TEMP 36.7; O2SAT 98
== END 2021-11-19 20:45 | disposition home or self-care (01) ==
PROVIDERS: Emergency Provider Emergency Medicine
DX: K29.20 Alcoholic gastritis without bleeding (principal); F11.20 Opioid dependence, uncomplicated; F10.129 Alcohol abuse with intoxication, unspecified
CPT/HCPCS: 36415; 80053; 80307; 82150; 83690; 85025; 96372; 96374; 99284; A9270; C9113; J1885; J2060

== ENCOUNTER 2022-01-23 15:23 | Emergency (ER) | payer OTHER, SELFPAY ==
--- NOTE | ~2022-01-23 | CT_ITS ---
EXAMINATION: CT cervical spine wo con DATE: 01/23/2022 16:11 INDICATION: Neck pain. Fall. TECHNIQUE: Computed tomography (CT) of the cervical spine was performed without intravenous contrast. Automated exposure control and iterative reconstruction technique were employed. The dose-length pro duct was 308.30 mGy-cm. COMPARISON: CT cervical spine 06/14/2015 FINDINGS: There is kyphosis of upper cervical spine. There are changes of anterior fusion procedure f rom C4 to C7 with discectomies, interbody bone graft, and anterior plate and screws. There is bridgin g interbody bone graft at C4-C5 and C5-C6, but not at C6-C7. There are changes of posterior fusion pr ocedure from C2 to T2 with lateral mass screws and pedicle screws. There are laminectomies from C3 to C6. There is moderately decreased disc height at C3-C4 and C7-T1. The following disc levels are spec ifically discussed: C2-C3: There is mild bilateral uncovertebral joint osteoarthritis. There is mild bilateral facet join t hypertrophy. There is mild left neural foraminal stenosis. There is no central canal stenosis. C3-C4: There is severe bilateral uncovertebral joint osteoarthritis. There is mild right and moderate left facet joint hypertrophy. There is mild right and moderate left neural foraminal stenosis. There is mild central canal stenosis with posterior decompression. C4-C5: There is severe right and moderate left uncovertebral joint hypertrophy. There is mild bilater al facet joint hypertrophy. There is moderate right and mild left neural foraminal stenosis. There is no central canal stenosis. C5-C6: There is moderate bilateral uncovertebral joint hypertrophy. There is moderate bilateral facet joint hypertrophy. There is mild bilateral neural foraminal stenosis. There is mild central canal st enosis with posterior decompression. C6-C7: There is moderate bilateral uncovertebral joint hypertrophy. There is mild bilateral facet adria nt osteoarthritis. There is mild bilateral neural foraminal stenosis. There is mild central canal jey nosis with posterior decompression. C7-T1: There is no uncovertebral joint osteoarthritis. There is mild right facet joint hypertrophy. T here is no neural foraminal stenosis. There is no central canal stenosis. IMPRESSION: 1. No fracture. 2. Anterior fusion procedure from C4 to C7 and posterior fusion procedure from C2 to T2. 3. Moderate cervical spondylosis. Reviewed, dictated and finalized at location A.
--- NOTE | ~2022-01-23 | CT_ITS ---
EXAMINATION: CT brain wo con DATE: 01/23/2022 16:11 INDICATION: Fall 3 days ago. Posterior head injury. Altered mental state, slow to respond. TECHNIQUE: Computed tomography (CT) of the head was performed without intravenous contrast. The mA wa s adjusted according to patient size. Iterative reconstruction technique was employed. Exam dose: 60 5.33 mGy-cm total exam DLP. COMPARISON: 06/24/2015 CT brain FINDINGS: There is greater than expected central and cortical cerebral and cerebellar atrophy for age . There is nonspecific diminished attenuation of the subcortical and periventricular cerebral white mat ter, likely due to chronic small vessel ischemic changes. Prominent bilateral carotid siphon internal carotid artery calcifications and some vertebral artery calcifications are noted. No intracranial mass lesion or hemorrhage or cerebrovascular accident is detected. No midline shift o r mass effect effect. No subdural or epidural hematoma. Abnormal high density within the partially visualized right orbital globe. No fracture or bone destruction of the cranial vault. Included paranasal sinuses and mastoid air cell s are normally developed and aerated. IMPRESSION: Greater than expected cerebral and cerebellar volume loss for age Cerebral atherosclerosis and chronic small vessel ischemic changes of the cerebral white matter No skull fracture or acute intracranial finding Reviewed, dictated and finalized at Location A. Reviewed, dictated and finalized at location B. IMPRESSION: Greater than expected cerebral and cerebellar volume loss for age Cerebral atherosclerosis and chronic small vessel ischemic changes of the cereb ral white matter No skull fracture or acute intracranial finding
[2022-01-23 15:23] VITALS: BP 128/84; PULSE 100; RESP 16; TEMP 37.3; O2SAT 100
--- NOTE | 2022-01-23 15:32 | ED.ALCOHOL ---
HPI - Alcohol General Chief Complaint: Alcohol Stated Complaint: AMB Time Seen by Provider: 01/23/22 15:33 Source: patient History of Present Illness HPI narrative: 56-year-old male with a history of marijuana use, alcoholism, status post spinal surgery in July of 2021, hypertension, cyclic vomiting syndrome, was transferred from the clinic where he went for -- alcohol withdrawal-- having shakes -- chronic neck pain after his surgery in July of 2021 for which she was prescribed Ultram. The patient arrives no benefit from Ultram and hands drinks to decrease his pain -- recent upper GI endoscopy for GI bleeding MD complaint: alcohol intoxication and alcohol withdrawal Amount of alcohol consumed: drank a 5th today Chronic alcohol use: Yes Previous visits for alcohol intoxication: Yes Recent trauma: No Treatments prior to arrival: none Related Data Home Medications Medication Instructions Recorded Confirmed amlodipine 5 mg tablet 5 mg PO DAILY 10/22/20 01/23/22 metoprolol succinate 50 mg 75 mg PO DAILY 01/23/22 01/23/22 tablet,extended release 24 hr ondansetron 4 mg disintegrating 4 mg PO PRN PRN Nausea 01/23/22 01/23/22 tablet pantoprazole 40 mg tablet,delayed 40 mg PO DAILY 01/23/22 01/23/22 release tramadol 50 mg tablet 50 mg PO PRN PRN Pain 01/23/22 01/23/22 Allergies Allergy/AdvReac Type Severity Reaction Status Date / Time No Known Allergies Allergy Verified 01/23/22 15:35 Review of Systems Review of Systems: All systems reviewed & are unremarkable except as noted in HPI and below Constitutional: Constitutional: Reports as per HPI and Reports no additional constitutional complaints Eyes: Eyes: Reports as per HPI and Reports no additional eye complaints ENT: Reports system reviewed and no additional complaints, except as documented and Reports as per HPI Cardiovascular: Cardiovascular: Reports as per HPI and Reports no additional cardiovascular complaints Respiratory: Respiratory: Reports as per HPI and Reports no additional respiratory complaints Gastrointestinal: Gastrointestinal: Reports as per HPI and Reports heartburn Comments: epigastric pain. History of hematemesis /melena Genitourinary: Genitourinary: Reports no additional male genitourinary complaints Musculoskeletal: Musculoskeletal: Reports no additional musculoskeletal complaints and Reports as per HPI Comments: chronic neck pain Integumentary/Breasts: Skin/Breast: Reports system reviewed and no additional complaints, except as docu and Reports as per HPI Neurologic: Reports system reviewed and no additional complaints, except as documented and Reports as per HPI Psychiatric: Psychiatric: Reports no additional psychiatric complaints and Reports as per HPI Endocrine: Endocrine: Reports no additional endocrine complaints and Reports as per HPI Hematologic/Lymphatic: Hematologic/Lymphatic: Reports no additional hematologic/lymphatic complaints and Reports as per HPI Allergic/Immunologic: Allergic/Immunologic: Reports no additional allergic/immunologic complaints and Reports as per HPI [facility] Past Medical History Medical History Cyclic vomiting syndrome Diverticulitis GERD (gastroesophageal reflux disease) Hypertension Surgical History Surgical History H/O neck surgery Family History Family History Mother Colon cancer Social History Social History Smoking packs per day: 0.5 Smoking cigarettes per day: 10.0 Smoking status: Current every day smoker Tobacco type: cigarettes and e-cigarettes/vaping Second hand tobacco smoke exposure: Yes Alcohol intake: former Drinks per week: 7 Alcohol use details: quit 3 years ago Substance use: current Substance use type: marijuana
--- NOTE | 2022-01-23 15:47 | ECG_ITS ---
Measurements Intervals [place] Rate: 92 P: 79 [place]: 180 QRS: 83 QRSD: 138 T: 63 QT: 399 QTc: 495 Interpretive Statements SINUS RHYTHM RIGHT BUNDLE BRANCH BLOCK ABNORMAL ECG Electronically Signed On 01-23-2022 22:54:33 CDT by Fady Harkins D.O.
--- NOTE | 2022-01-23 15:53 | PC.NURSE ---
PT PLACED ON O2 @ 2L DUE TO DESATING TO 84% WHEN HE FELL ASLEEP, PT CURRENTLY 98% ON 2L. WILL CONTINUE TO MONITOR.
[2022-01-23] MEDS: LORazepam (*CRX) 0.5 MG TABLET 2 MG (16:02)
--- NOTE | 2022-01-23 16:16 | PC.NURSE ---
PT HAS RETURNED FROM CT AT THIS TIME. LAB AT BEDSIDE.
[2022-01-23 16:30] LABS: Hematocrit 24.3 % (40.0-54.0); Hemoglobin 7.4 g/dL (14.0-18.0); Mean Corpuscular HGB Conc 30.5 g/dL (32.0-36.0); Mean Corpuscular Hemoglobin 22.8 pg (27.0-31.0); Mean Platelet Volume 9.6 fl (8.7-11.0); Platelet Count Result 289 K/mm3 (150-420); Red Blood Count 3.24 M/mm3 (4.70-6.10); Red Cell Distribution Width 25.2 % (11.6-14.4); White Blood Count 3.8 K/mm3 (4.8-10.8)
[2022-01-23 16:52] LABS: Salicylate 1.6 mg/dL (2.8-20.0); Troponin I 26.9 ng/L (0.00-60.4)
[2022-01-23 16:59] LABS: Ammonia < 10 umol/L (11-32)
[2022-01-23 17:00] VITALS: BP 120/76; PULSE 82; RESP 16; O2SAT 98
[2022-01-23 17:13] LABS: Anion Gap 10 mmol/L (8-16); Blood Urea Nitrogen 25 mg/dL (7-18); Calcium 7.9 mg/dL (8.5-10.1); Carbon Dioxide 28 mmol/L (21-32); Chloride 106 mmol/L (98-108); Estimated CRCL calculation 67 ml/min; Estimated Glomerular Filt Rate > 60; Glucose 80 mg/dL (70-99); Osmolality Calculated 301 mOsm/kg (285-295); Potassium 3.4 mmol/L (3.5-5.1); Sodium 144 mmol/L (136-145)
[2022-01-23 17:14] LABS: Alanine Aminotransferase 22 U/L (16-63); Albumin Level 3.2 g/dL (3.4-5.0); Alkaline Phosphatase 73 U/L (46-116); Aspartate Amino Transferase 31 U/L (15-37); Total Protein 6.2 g/dL (6.4-8.2)
[2022-01-23 17:16] LABS: Occult Blood Negative (Negative)
--- NOTE | 2022-01-23 17:25 | PC.NURSE ---
PT IS RESTLESS, REDIRECTIBLE. PT WILL NOT STAY IN BED, OUT TO RN STATION ASKING TO MICROWAVE HIS OVEN. PT IS AWAITING RESULTS AT THIS TIME. WILL CONTINUE TO MONITOR.
[2022-01-23 17:38] LABS: Bilirubin,Total 0.1 mg/dL (0.00-1.00)
[2022-01-23 17:39] LABS: Ethanol 329 mg/dL (0-6)
[2022-01-23 17:40] LABS: Acetaminophen < 2 ug/mL (10-30)
[2022-01-23 17:49] LABS: Band Neutrophils Percent 0 % (0-6); Basophils Percent Manual 0 % (0-1); Eosinophils Percent Manual 0 % (1-6); Lymphocytes Absolute Manual 1.25 K/mm3 (1.1-4.5); Lymphocytes Percent Manual 33 % (18-44); Monocytes Absolute Manual 0.07 K/mm3 (0.1-0.90); Monocytes Percent Manual 2 % (3-9); Neutrophils Absolute Manual 2.47 K/mm3 (1.3-6.7); Neutrophils Percent Manual 65 % (46-73); Platelet Estimate Adequate (Adequate); Total Cells Counted 100
--- NOTE | 2022-01-23 17:59 | PC.NURSE ---
PT UP TO RR WITHOUT DIFFICULTY, TALKING ON CELL PHONE. PT RETURNS TO STRETCHER IN EXAM ROOM. WILL CONTINUE TO MONITOR DUE TO ETOH LEVEL. NAD NOTED.
[2022-01-23 18:03] VITALS: BP 120/90; PULSE 76; RESP 16; O2SAT 100
[2022-01-23] MEDS: SPIRONOLACTONE 25 MG TABLET PO (19:30)
[2022-01-23] MEDS: THIAMINE HCL 100 MG TABLET PO (19:36)
[2022-01-23 20:16] LABS: Appearance Urine Clear (Clear); Bilirubin Urine Negative (Negative); Color Urine Light Yellow (Yellow); Glucose Urine UA Negative (Negative); Ketones Urine 1+ (Negative); Leukocyte Esterase Ur Negative (Negative); Nitrate Urine Negative (Negative); Protein Urine Trace (Negative); Specific Grav Ur 1.025 (1.010-1.020); Urobilinogen Urine 0.2 mg/dL (0.2-1.0)
[2022-01-23 20:19] LABS: Add Urine Microscopic? YES; Bacteria Urine Trace /hpf; Blood Urine Trace-Intact (Negative); RBC Urine 0-2 /hpf (0-2); Squamous Epithelial Cell Urine Rare /hpf (Few); WBC Urine None seen /hpf (0-3)
[2022-01-23 20:22] LABS: Amphetamine Screen Urine Negative (Negative); Barbiturate Screen Urine Negative (Negative); Benzodiazepines Screen Urine Positive (Negative); Cannabinoid Screen Urine Positive (Negative); Cocaine Screen Urine Negative (Negative); Methadone Screen Urine Negative (Negative); Opiate Screen Urine Negative (Negative); Phencyclidine Screen Urine Negative (Negative)
--- NOTE | 2022-01-23 20:22 | PC.NURSE ---
Pt states he is getting a ride from a friend who is on the way. Updated ERP and Dr. Awan puts in discharge orders.
[2022-01-23 20:23] VITALS: BP 113/70; PULSE 74; RESP 18; O2SAT 96
== END 2022-01-23 20:27 | disposition home or self-care (01) ==
PROVIDERS: Emergency Provider Internal Medicine Critical Care Medicine; PCP Physician Assistant
DX: F10.129 Alcohol abuse with intoxication, unspecified (principal); R41.82 Altered mental status, unspecified; M54.2 Cervicalgia; D64.9 Anemia, unspecified; D70.9 Neutropenia, unspecified
CPT/HCPCS: 36415; 70450; 72125; 80053; 80307; 81001; 82140; 82272; 83605; 84484; 85025; 93005; 99284; A9270

== ENCOUNTER 2023-03-21 17:36 | Observation (INO) | payer OTHER, SELFPAY ==
[2023-03-21] VITALS (10 sets, daily range): BP systolic 200–213; BP diastolic 121–140; PULSE 103–121; RESP 14–26; TEMP 36.6–37.1; O2SAT 98–100
--- NOTE | ~2023-03-21 | XR_ITS ---
EXAMINATION: XR chest 1V portable INDICATION: Weakness TECHNIQUE: Portable AP chest at 1945 hours COMPARISON: 09/10/2015 FINDINGS: The lungs are free of acute opacities. No pleural effusion or pneumothorax. The cardiomedia stinal silhouette is normal. There our interval surgical changes at the cervicothoracic spine. IMPRESSION: 1. No acute cardiopulmonary abnormality. Reviewed, dictated and finalized at location F.
--- NOTE | 2023-03-21 19:34 | ECG_ITS ---
Measurements Intervals [place] Rate: 104 P: 63 [place]: 164 QRS: 43 QRSD: 133 T: 40 QT: 363 QTc: 478 Interpretive Statements SINUS TACHYCARDIA RIGHT BUNDLE BRANCH BLOCK BASELINE ARTIFACT- I, III, AVR, AVL, AVF, V1-V2 ABNORMAL ECG COMPARED TO ECG 01/23/2022 16:21:17 SINUS TACHYCARDIA NOW PRESENT Electronically Signed On 03-21-2023 20:43:28 CDT by Fady Harkins D.O.
--- NOTE | 2023-03-21 19:50 | ED.GENADULT ---
HPI - General Adult General Chief complaint: Recheck/Abnormal Lab/Rx Stated complaint: high blood pressure Time Seen by Provider: 03/21/23 19:30 History of Present Illness HPI narrative: Is a 58-year-old gentleman who presents the emergency department with chief complaint of alcohol withdrawal. The patient reports that he has history of alcohol abuse and reports that he last used alcohol approximately 3 days ago. Patient reports that he has decided to quit drinking has been seen at another hospital and reports that he was not discharged with any kind of medications to facilitate his withdrawal patient reports he went to a treatment facility and was found to have a blood pressure that was in the 200s and to be tremulous patient reports increased symptoms to the emergency department for further evaluation. Related Data Home Medications Medication Instructions Recorded Confirmed amlodipine 5 mg tablet 5 mg PO DAILY 10/22/20 01/23/22 metoprolol succinate 50 mg 75 mg PO DAILY 01/23/22 01/23/22 tablet,extended release 24 hr ondansetron 4 mg disintegrating 4 mg PO PRN PRN Nausea 01/23/22 01/23/22 tablet pantoprazole 40 mg tablet,delayed 40 mg PO DAILY 01/23/22 01/23/22 release tramadol 50 mg tablet 50 mg PO PRN PRN Pain 01/23/22 01/23/22 Allergies Allergy/AdvReac Type Severity Reaction Status Date / Time No Known Allergies Allergy Verified 01/23/22 15:35 Review of Systems Review of Systems: A 10 system review of systems was completed on the patient and is negative except for what is stated in the HPI. Nursing and ancillary documentation was reviewed. [facility] Past Medical History Medical History Cyclic vomiting syndrome Diverticulitis GERD (gastroesophageal reflux disease) Hypertension Surgical History Surgical History H/O neck surgery Family History Family History Mother Colon cancer Social History Social History Smoking packs per day: 0.5 Smoking cigarettes per day: 10.0 Smoking status: Current every day smoker Tobacco type: cigarettes and e-cigarettes/vaping Second hand tobacco smoke exposure: Yes Alcohol intake: former Drinks per week: 7 Alcohol use details: quit 3 years ago Substance use: current Substance use type: marijuana Other substance usage details: occasional Gender identity (if verbalized by the patient): Male Spiritual care concerns: No Exam Narrative: GENERAL: Well-appearing, well-nourished, and in no acute distress. HEAD: Normocephalic, atraumatic. EYES: PERRLA and EOMI. ENT: Nares clear, no rhinorrhea or epistaxis. Mucous membranes moist. NECK: Supple. CHEST: Clear to auscultation. No respiratory distress. HEART: Regular rate and rhythm. No murmur heard. Normal peripheral pulses. ABDOMEN: Soft, nontender, nondistended, normal active bowel sounds. EXTREMITIES: Normal range of motion. No edema. SKIN: Warm, dry, no rash. NEURO: No focal deficits. Alert and oriented x3. Patient is tremulous PSYCH: Normal mood and affect. Course Vital Signs Vital signs: Vital Signs Temperature 37.1 C 03/21/23 17:39 Pulse Rate 108 H 03/21/23 17:39 Respiratory Rate 19 03/21/23 17:39 Blood Pressure 202/122 H 03/21/23 17:39 Pulse Oximetry 100 03/21/23 17:39 Oxygen Delivery Room Air 03/21/23 17:39 Temperature 36.6 C 03/21/23 19:32 Pulse Rate 114 H 03/21/23 22:00 Respiratory Rate 25 H 03/21/23 22:00 Blood Pressure 213/121 H 03/21/23 21:32 Pulse Oximetry 98 03/21/23 21:32 Oxygen Delivery Room Air 03/21/23 17:39 Medical Decision Making [facility] Narrative Medical decision making narrative: Differential diagnosis dehydration, alcohol withdrawal, electrolyte abnormality, hype
[2023-03-21 19:58] LABS: Appearance Urine Clear (Clear); Bilirubin Urine Negative (Negative); Blood Urine Negative (Negative); Color Urine Yellow (Yellow); Glucose Urine UA Negative (Negative); Ketones Urine Negative (Negative); Leukocyte Esterase Ur Negative LEU/UL (Negative); Nitrate Urine Negative (Negative); Protein Urine Negative (Negative); Urobilinogen Urine 0.2 mg/dL (<2.0); pH Urine 5.5 (5.0-9.0)
[2023-03-21 19:59] LABS: Add Urine Microscopic? NO
[2023-03-21 20:17] LABS: Basophils Absolute Auto 0.1 K/mm3 (0.0-0.1); Basophils Percent Auto 0.9 % (0.2-1.2); Eosinophils Absolute Auto 0.1 K/mm3 (0-0.3); Eosinophils Percent Auto 0.9 % (0-4.4); Hemoglobin 8.8 g/dL (14.0-18.0); Immature Granulocyte Absolute 0.04 K/mm3 (0.00-0.031); Immature Granulocyte Percent A 0.6 % (0-0.5); Lymphocytes Absolute Auto 1.07 K/mm3 (0.9-3.2); Lymphocytes Percent Auto 15.6 % (18.3-44.2); Mean Corpuscular HGB Conc 31.4 g/dl (32-36); Mean Corpuscular Hemoglobin 31.5 pg (26-34); Mean Corpuscular Volume 100.4 fl (80-100); Mean Platelet Volume 9.7 fl (7.4-10.4); Monocytes Absolute Auto 0.5 K/mm3 (0.1-0.6); Monocytes Percent Auto 7.7 % (2.6-8.5); Neutrophils Absolute Auto 5.1 K/mm3 (1.3-6.7); Neutrophils Percent Auto 74.3 % (45.5-73.1); Platelet Count Result 303 k/mm3 (150-375); Red Blood Count 2.79 M/mm3 (4.6-6.20); Red Cell Distribution Width 19.1 % (11.5-14.5); White Blood Count 6.9 K/mm3 (4.5-10.0)
[2023-03-21 20:19] LABS: Amphetamine Screen Urine Negative (Negative); Barbiturate Screen Urine Negative (Negative); Benzodiazepines Screen Urine Positive (Negative); Cannabinoid Screen Urine Negative (Negative); Cocaine Screen Urine Negative (Negative); Methadone Screen Urine Negative (Negative); Opiate Screen Urine Negative (Negative); Phencyclidine Screen Urine Negative (Negative)
[2023-03-21 20:27] LABS: Ethanol < 10 mg/dL (<10)
[2023-03-21 20:29] LABS: Alanine Aminotransferase 21 U/L (6-50); Albumin Level 3.6 g/dL (3.5-5.1); Alkaline Phosphatase 68 U/L (38-126); Anion Gap 6 mmol/L (8-16); Aspartate Amino Transferase 33 U/L (17-59); Bilirubin,Total 0.6 mg/dL (0.2-1.3); Blood Urea Nitrogen 19 mg/dL (9-20); Calcium 8.5 mg/dL (8.4-10.2); Carbon Dioxide 24 mmol/L (22-30); Chloride 107 mmol/L (98-107); Estimated CRCL calculation 73 ml/min; Estimated Glomerular Filt Rate > 60; Glucose 105 mg/dL (65-110); Lactic Acid Reflex 1.2 mmol/L (0.7-2.0); Lipase 215 U/L (23-300); Magnesium 1.3 mg/dL (1.6-2.3); Phosphorus 3.3 mg/dL (2.5-4.5); Potassium 4.3 mmol/L (3.4-5.0); Sodium 137 mmol/L (137-145)
[2023-03-21 20:32] LABS: Prothrombin Time 13.4 Seconds (11.1-14.7)
[2023-03-21] MEDS: SODIUM CHLORIDE 0.9% IV 1,000 ML 999 ML IV CONT (20:32)
[2023-03-21] MEDS: LORazepam INJ (*CRX) 2 MG/ML VIAL 1 MG IV PUSH (20:32)
[2023-03-21 20:33] LABS: Partial Thromboplastin Time 29.2 SECONDS (22.3-36.8)
[2023-03-21 20:40] LABS: Troponin I 0.012 ng/mL (0.000-0.034)
[2023-03-21] MEDS: PROCHLORPERAZINE EDISYLATE 10 MG/2 ML VIAL IV PUSH (20:55)
[2023-03-21 22:36] LABS: Glucose Point of Care 97 mg/dl (65-105)
[2023-03-21] MEDS: THIAMINE 500 MG/NS 100 ML 500 MG/100 ML BAG 200 MG IVPB (22:43)
[2023-03-21] MEDS: MAGNESIUM SULFATE 3GM/D5W100ML 3 GM/100 ML BAG IVPB (23:17)
[2023-03-22] VITALS (73 sets, daily range): BP systolic 112–217; BP diastolic 62–197; PULSE 94–118; RESP 12–30; TEMP 35.9–36.7; O2SAT 76–100; BMI 26.0
[2023-03-22] MEDS: chlordiazePOXIDE (*CRX) 25 MG CAPSULE PO ×3 (08:12→23:08)
[2023-03-22] MEDS: LORazepam INJ (*CRX) 2 MG/ML VIAL IV PUSH ×4 (08:13→20:53)
[2023-03-22 08:32] LABS: Glucose Point of Care 95 mg/dl (65-105)
[2023-03-22] MEDS: DEXTROSE 5%/0.45% SOD CHL 1,000 ML 125 ML IV CONT (09:21)
[2023-03-22] MEDS: THIAMINE HCL 200 MG/2 ML VIAL 100 MG IV PUSH (09:23)
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
--- NOTE | 2023-03-22 15:02 | ADMGEN ---
This patient, Bean Lizama, was admitted to IMU Room 205- at 1350. Patient/family oriented to hospital policies and general routines including ID bracelet, bed and alarms, visiting hours, pain management, procedures, bathroom and other care routines, personal items, smoking policy, room service/diet, and visiting hours. Information on how to activate the Rapid Response Team has been discussed. Patient/Family are encouraged to report perceived risks to care and to ask questions if they do not understand what they are told or what they should do.
[2023-03-22] MEDS: amLODIPine BESYLATE 5 MG TABLET 10 MG PO (16:58)
[2023-03-22] MEDS: METOPROLOL SUCCINATE EXT REL 50 MG TABCR 100 MG PO (18:39)
[2023-03-22] MEDS: LOSARTAN POTASSIUM 50 MG TABLET 100 MG PO (18:40)
[2023-03-22] MEDS: MELATONIN 5 MG TABLET 10 MG PO (20:53)
[2023-03-22] MEDS: HALOPERIDOL LACTATE 5 MG/ML VIAL 2 MG IV PUSH (23:08)
--- NOTE | 2023-03-22 23:14 | PC.NURSE ---
Patient is anxious, walking around the room, states he came in with $40 worth of cigarettes, a VISA card, and SS card. Home meds found locked up in the medication room along with multiple packs of cigarettes. His VISA and SS card were found in his belongings. Haldol 2 mg IV given for anxiety. Patient in bed with 3 side rails up and the bed alarm turned on. Call light within reach, instructed not to get out of bed without assistance. Patient agreed.
[2023-03-23] VITALS (13 sets, daily range): BP systolic 115–150; BP diastolic 73–92; PULSE 94–119; RESP 12–20; TEMP 35.9–36.9; O2SAT 98–100
--- NOTE | 2023-03-23 00:44 | PC.NURSE ---
Patient continues to get out of bed after he turned off his bed alarm. Voided on the floor. Continue to reinforce safety and fall prevention.
[2023-03-23] MEDS: chlordiazePOXIDE (*CRX) 25 MG CAPSULE PO (04:54)
[2023-03-23] MEDS: HALOPERIDOL LACTATE 5 MG/ML VIAL 2 MG IV PUSH ×2 (04:54→08:17)
[2023-03-23 05:06] LABS: Albumin Level 3.6 g/dL (3.5-5.1); Anion Gap 8 mmol/L (8-16); Blood Urea Nitrogen 11 mg/dL (9-20); Calcium 9.2 mg/dL (8.4-10.2); Carbon Dioxide 24 mmol/L (22-30); Chloride 105 mmol/L (98-107); Estimated CRCL calculation 81 ml/min; Estimated Glomerular Filt Rate > 60; Glucose 112 mg/dL (65-110); Magnesium 1.7 mg/dL (1.6-2.3); Phosphorus 3.8 mg/dL (2.5-4.5); Potassium 3.3 mmol/L (3.4-5.0); Sodium 137 mmol/L (137-145)
[2023-03-23] MEDS: FOLIC ACID 1 MG TABLET PO (08:15)
[2023-03-23] MEDS: METOPROLOL SUCCINATE EXT REL 50 MG TABCR 100 MG PO (08:15)
[2023-03-23] MEDS: SERTRALINE HCL 50 MG TABLET 150 MG BY MOUTH (08:15)
[2023-03-23] MEDS: ATORVASTATIN 40 MG TABLET PO (08:15)
[2023-03-23] MEDS: PANTOPRAZOLE 40 MG TABLET PO (08:15)
[2023-03-23] MEDS: FAMOTIDINE 20 MG TABLET 40 MG PO (08:16)
[2023-03-23] MEDS: THIAMINE HCL 200 MG/2 ML VIAL 100 MG IV PUSH (08:16)
[2023-03-23] MEDS: amLODIPine BESYLATE 5 MG TABLET 10 MG PO (08:16)
[2023-03-23] MEDS: FERROUS SULFATE 325 MG TABLET DR PO (08:16)
[2023-03-23] MEDS: LOSARTAN POTASSIUM 50 MG TABLET 100 MG PO (08:16)
[2023-03-23] MEDS: POTASSIUM CHLORIDE 20 MEQ ER TABLET PO (12:14)
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
[2023-03-23] MEDS: BUPRENORPHINE HCL (*CRX) 2 MG SUBLINGUAL TABLET PO ×2 (13:39→20:52)
[2023-03-23] MEDS: LORazepam (*CRX) 0.5 MG TABLET PO (13:40)
[2023-03-23] MEDS: ACETAMINOPHEN 325 MG TABLET 650 MG PO (16:50)
--- NOTE | 2023-03-23 22:05 | PC.NURSE ---
This patient, Bean Lizama, was received from [facility] on 03/23/23 at 2205. Patient/family oriented to unit policies and routines. Pt's home medications, cigarettes, and social security and bank cards are locked in the med room in the home med bin.
--- NOTE | 2023-03-23 22:05 | PC.NURSE ---
This patient, Bean Lizama, was transferred to [facility] on 03/23/23 at 2206. Personal belongings sent with patient. Report given to Clare Tobar RN. Appropriate documentation sent with patient. Home meds and belongings sent with patient and handed to Clare ROGERS.
[2023-03-24 03:40] VITALS: BP 100/59; PULSE 86; RESP 20; TEMP 36; O2SAT 98
[2023-03-24] MEDS: FERROUS SULFATE 325 MG TABLET DR PO (09:08)
[2023-03-24] MEDS: SERTRALINE HCL 50 MG TABLET 150 MG BY MOUTH (09:08)
[2023-03-24] MEDS: ATORVASTATIN 40 MG TABLET PO (09:08)
[2023-03-24] MEDS: LOSARTAN POTASSIUM 50 MG TABLET 100 MG PO (09:08)
[2023-03-24 09:09] VITALS: PULSE 88
[2023-03-24] MEDS: THIAMINE HCL 100 MG TABLET PO (09:09)
[2023-03-24] MEDS: FAMOTIDINE 20 MG TABLET 40 MG PO (09:09)
[2023-03-24] MEDS: FOLIC ACID 1 MG TABLET PO (09:09)
[2023-03-24] MEDS: METOPROLOL SUCCINATE EXT REL 50 MG TABCR 100 MG PO (09:09)
[2023-03-24] MEDS: PANTOPRAZOLE 40 MG TABLET PO (09:09)
[2023-03-24 09:16] VITALS: BP 132/70; PULSE 87
[2023-03-24] MEDS: amLODIPine BESYLATE 5 MG TABLET 10 MG PO (09:17)
[2023-03-24] MEDS: BUPRENORPHINE HCL (*CRX) 2 MG SUBLINGUAL TABLET PO (09:25)
[2023-03-24 09:26] VITALS: PULSE 88; RESP 20; O2SAT 98
--- NOTE | 2023-03-24 10:44 | PM.DS ---
DS: Admitting Diagnosis Discharge Date 03/24/23 Admitting Diagnosis Elevated blood pressure DS: Discharge Diagnosis Discharge Diagnosis (1) Hypertension: Code(s): I10 - Essential (primary) hypertension Status: Acute (2) Alcohol withdrawal: Code(s): F10.939 - Alcohol use, unspecified with withdrawal, unspecified Status: Acute (3) Alcoholism: Code(s): F10.20 - Alcohol dependence, uncomplicated Status: Acute (4) Anemia: Code(s): D64.9 - Anemia, unspecified Status: Acute (5) Tobacco abuse: Code(s): Z72.0 - Tobacco use Status: Acute DS: Summary Hospital Course Reason for hospitalization: 58yo male with alcoholism, HTN and cyclic vomiting here for elevated blood pressure.? Please see H&P for details. Hospital Course: Patient was recently discharged from [facility] earlier on the day of this admission.? It appears the patient was smoking excessively before presenting to [facility].? BP was as high as 213/121 here in the ED. Unclear if he received his BP medications before discharge from the other hospital or his elevated BP related to anxiety. Withdrawal seemed less likely since he was just hospitalized for withdrawal at the other hospital. Home medications started and BP became better controlled. Patient was tremulous in the emergency room and felt he may be having withdrawal symptoms.? Blood pressure has improved with improvement in his anxiety symptoms. We placed him on scheduled Librium. CIWA trended down. Plan to resume buprenorphine (don't have Suboxone) after discussing the care with his personal physician. Librium stopped and buprenorphine 2mf Q12h ordered. Respiratory Scientist consulted to see if bed still available with plans to transfer patient to [facility] tomorrow. He has been educated about the benefits of smoking cessation. patient feels well today. He is eager for discharge. He overall did well and was able to be discharged on 03/24/23. Status at Discharge Cognitive/behavioral status at discharge: stable Time Spent with Patient Time attestation: Total time spent providing and/or coordinating discharge services: 35 minutes Time spent: Greater than 30 minutes Exam Narrative: AF 96.8 132/70 88 20 98% ra Gen - NARD Chest - CTA bilaterally CV - RRR S1/S2 Abd - soft, ND, +BS, decreased left flank pain Ext - no pedal edema. Psych - normal mood and affect. Patient is pleasant and cooperative. Skin - warm and dry Discharge Plan Discharge Attending physician on discharge: Sebastián Long Discharging Clinician: Sebastián Long Anticipated Discharge Date/Time: 03/24/23 10:54 Patient Disposition: Other Activity: as tolerated Diet: heart healthy Discharge Instructions: Check blood pressure 1 to 2 times a day. Record and bring into your doctor for review. Call your doctor if your blood pressure is greater than 180/110. Take precautions to avoid falls. Rise slowly from a lying or sitting position. Pause before standing or walking. Avoid NSAIDs (ibuprofen, naproxen, Aleve). Tylenol is safe to take. Once you leave [place], please go immediately today to [facility] for alcohol rehab. Follow-up with your primary care provider once you are out of rehab. Thank you for using [facility] for your health care needs. Patient Instructions: Antibiotic Form Stand Alone Forms: General Discharge Information Follow-up/Referrals: Daniel,HEATHER Thomas [Primary Care Provider] - Discharge Medications: Continued metoprolol succinate 50 mg tablet extended release 24 hr 100 mg PO DAILY pantoprazole 40 mg tablet,delayed release (DR/EC) 40 mg PO DAILY losartan 50 mg tablet 100 mg PO DAILY atorvastatin 40 mg tablet 40 mg PO DAILY folic acid 1 mg tablet 1 mg PO DAILY ferrous sulfate [FeroSul] 325 mg (65 mg iron) tablet 325 mg PO DAILY famotidine 20 mg tablet
[2023-03-24] MEDS: ACETAMINOPHEN 325 MG TABLET 650 MG PO (11:56)
[2023-03-24 12:00] VITALS: PULSE 88
== END 2023-03-24 14:50 | disposition other institution (70) ==
LOC: ANHED 23:00 → ANH2MED 03-24 10:56 → ANHIMU 03-25 10:39
PROVIDERS: Internal Medicine; Admitting Provider Internal Medicine; Emergency Provider Emergency Medicine; PCP Physician Assistant; Visit Provider Internal Medicine
DX: F10.239 Alcohol dependence with withdrawal, unspecified (principal); Y90.0 Blood alcohol level of less than 20 mg/100 ml; I10 Essential (primary) hypertension; E83.42 Hypomagnesemia; R11.15 Cyclical vomiting syndrome unrelated to migraine; K21.9 Gastro-esophageal reflux disease without esophagitis; D64.9 Anemia, unspecified; M54.2 Cervicalgia; R94.31 Abnormal electrocardiogram [ECG] [EKG]; F17.210 Nicotine dependence, cigarettes, uncomplicated; F12.90 Cannabis use, unspecified, uncomplicated
CPT/HCPCS: 36415; 71045; 80053; 80069; 80307; 81003; 82948; 83605; 83690; 83735; 84100; 84484; 85025; 85610; 85730; 93005; 96361; 96365; 96366; 96367; 96374; 96375; 96376; 99285; A9270; G0378; G0379; J0780; J1630; J2060; J3411; J3475; J7030